=== PATIENT | female | born 1960 | race Caucasian/White ===

== ENCOUNTER 2016-09-07 19:11 | Emergency (ER) | payer OTHER ==
[2016-09-07 19:40] VITALS: BP 145/84
--- NOTE | 2016-09-07 20:29 | EDM.PDOC ---
ED HPI GENERAL MEDICAL PROBLEM - General Chief Complaint: Upper Extremity Injury/Pain Stated Complaint: POSSIBLE RIGHT SHOULDER DISLOCATE Time Seen by Provider: 09/07/16 19:49 Source of Information: Reports: Patient, Family History Limitations: Reports: No Limitations - History of Present Illness INITIAL COMMENTS - FREE TEXT/NARRATIVE: Is a 55-year-old female. She was attempting to get on a course and she was standing on a log. The log rolled causing her to fall on her right shoulder. She thinks her shoulder might be dislocated. When she fell her right upper arm was next to her chest and she fell [place] on the right shoulder. She denies any neck pain or upper back pain. She did not hit her head and there was no loss of consciousness. She denies any hip pain or knee pain. She says her left ankle little sore but then she has a lot of foot and ankle problems and she is not worried about that she is worried about her shoulder. She denies any nausea and vomiting. Right Shoulder Pain Score (Numeric/FACES): 3 - Related Data Allergies Allergy/AdvReac Type Severity Reaction Status Date / Time No Known Allergies Allergy Verified 09/07/16 19:36 Home Meds: Home Meds FLUoxetine [PROzac] 40 mg PO DAILY 12/21/15 [History] Cholecalciferol (Vitamin D3) [Vitamin D3] 1,000 unit PO DAILY 05/03/16 [History] Glucosamine/D3/Boswellia [place] [Osteo Bi-Flex Caplet] 1 tab PO DAILY 05/03/16 [ History] Lactobacillus Acidophilus [Probiotic] 1 cap PO DAILY 05/03/16 [History] Prevagen 1 tab PO DAILY 05/03/16 [History] Vitamin E 1 cap PO DAILY 05/03/16 [History] Hydrocodone/Acetaminophen [Hydrocodon-Acetaminophen 5-325] 1 each PO Q6H PRN # 20 tablet 09/07/16 [Rx] Naproxen Sodium [Aleve] 440 mg PO ONCALL 09/07/16 [History] Past Medical History HEENT History: Reports: Cataract, Impaired Vision, Other (See Below) Other HEENT History: wears glasses Cardiovascular History: Reports: High Cholesterol, Hypertension Respiratory History: Reports: Sleep Apnea Other Respiratory History: wears cpap Gastrointestinal History: Reports: Diverticulosis Genitourinary History: Reports: None PET CARE ASSISTANT History: Reports: Endometriosis Musculoskeletal History: Reports: Arthritis, Osteoarthritis Neurological History: Reports: Migraines Psychiatric History: Reports: Depression Endocrine/Metabolic History: Reports: None Hematologic History: Reports: None, Anemia Oncologic (Cancer) History: Reports: None Dermatologic History: Reports: None - Past Surgical History HEENT Surgical History: Reports: Cataract Surgery GI Surgical History: Reports: Appendectomy, Colonoscopy, Hernia Repair/Other Female Surgical History: Reports: Hysterectomy Musculoskeletal Surgical History: Reports: Other (See Below) Other Musculoskeletal Surgeries/Procedures:: Bursa removed R) elbow, carpel tunnel, R) foot screws Social & Family History - Tobacco Use Smoking Status *Q: Former Smoker Used Tobacco, but Quit: Yes Month Tobacco Last Used: 12/2015 Second Hand Smoke Exposure: No - Alcohol Use Days Per Week of Alcohol Use: 0 Number of Drinks Per Day: 0 Total Drinks Per Week: 0 - Recreational Drug Use Recreational Drug Use: No Drug Use in Last 12 Months: No Review of Systems - Review of Systems Review Of Systems: See Below Constitutional: Reports: No Symptoms Eyes: Reports: No Symptoms Ears: Reports: No Symptoms Nose: Reports: No Symptoms Mouth/Throat: Reports: No Symptoms Respiratory: Denies: Shortness of Breath Cardiovascular: Denies: Chest Pain GI/Abdominal: Reports: No Symptoms Genitourinary: Reports: No Symptoms Musculoskeletal: Reports: Other (As per history of present illness) Skin: Reports: No Symptoms Neurological: Reports: No Symptoms Psychiatric: Reports: No Symptoms ED EXAM, GENERAL - Physical Exam Exam: See Below Exam Limited By: No Limitations General Appearance: Alert, WD/WN, Mild Distress Eye Exam: Bilateral Eye: Normal Inspection Ears: Normal External Exam Nose: Normal Inspection Throat/Mouth: Normal Inspection, Normal Lips, Normal Voice Head: Atraumatic, Normocephalic Neck: Supple, Full Range of Motion Respiratory/Chest: No Respiratory Distress, Lungs Clear, Other (There is no rib tenderness on palpation of the left and right ribs) Cardiovascular: Regular Rate, Rhythm, No Murmur GI/Abdominal: Other (Patient denies any abdominal tenderness) Back Exam: Normal Inspection Extremities: Other (Her right shoulder appears to be swollen very tender on the proximal humeral area, the shoulder is not dislocated because the glenoid fossa is full, she has no range of motion of the shoulder due to pain, her right elbow has a small contusion noted but she has full supination and pronation of that elbow, she has some mild stiffness in her right wrist but she denies any pain and she has full motion of her digits and able to make a fist without difficulty, her left upper extremity is atraumatic) Neurological: Alert, Oriented Psychiatric: Normal Affect, Normal Mood Skin Exam: Warm, Dry Course - Vital Signs Last Recorded V/S: Last Vital Signs Temp 97.6 F 09/07/16 19:38 Pulse 70 09/07/16 19:38 Resp 18 09/07/16 19:38 BP 145/84 H 09/07/16 19:38 Pulse Ox 96 09/07/16 19:38 - Orders/Labs/Meds Orders: Active Orders 24 hr Category Date Time Status Communication Order [RC] STAT Care 09/07/16 20:52 Active Shoulder Comp Rt [CR] Stat Exams 09/07/16 19:54 Taken - Radiology Interpretation Free Text/Narrative:: Shoulder x-ray of the right shoulder, does not show any proximal humeral fracture, it does have degenerative changes in the before meals joint and there might be an old versus new inferior glenoid lip fracture noted. Departure - Departure Time of Disposition: 21:22 Disposition: Home, Self-Care 01 Condition: Fair Clinical Impression: Contusion of right shoulder Qualifiers: Encounter type: initial encounter Qualified Code(s): S40.011A - Contusion of right shoulder, initial encounter Right shoulder strain Qualifiers: Encounter type: initial encounter Qualified Code(s): S46.911A - Strain of unspecified muscle, fascia and tendon at shoulder and upper arm level, right arm , initial encounter Rotator cuff disorder Qualifiers: Laterality: right Qualified Code(s): M67.911 - Unspecified disorder of synovium and tendon, right shoulder - Discharge Information Prescriptions: Hydrocodone/Acetaminophen [Hydrocodon-Acetaminophen 5-325] 1 each PO Q6H PRN # 20 tablet PRN Reason: Pain Referrals: Mitra Woo NP [Primary Care Provider] - Pk Engle MD [Physician] - Forms: ED Department Discharge Additional Instructions: Ice the shoulder down 20 minutes every 1-2 hours over the next 48 hours, take the medication as needed for pain, wear the sling when you were up walking about or sitting up but you may take it off when you lie down, try to sleep and a slight incline so you are not tempted to rollover on the right shoulder while sleeping, call Dr. Engle's office Saturday for reevaluation of your right shoulder, return to the ER if needed - My Orders Last 24 Hours: My Active Orders 09/07/16 19:54 Shoulder Comp Rt [CR] Stat 09/07/16 20:52 Communication Order [RC] STAT - Assessment/Plan Last 24 Hours: My Active Orders 09/07/16 19:54 Shoulder Comp Rt [CR] Stat 09/07/16 20:52 Communication Order [RC] STAT
[2016-09-07] MEDS ORDERED: Acetaminophen/HYDROcodone 325-5 MG Tab PO ONE (21:36)
--- NOTE | 2016-09-10 08:12 | CR ---
Right shoulder: Three views of the right shoulder were obtained. Comparison: No previous right shoulder study. Joint space narrowing and mild inferior spurring are seen within the acromioclavicular joint. Minimal bony density which is felt to be old is seen off the inferior glenoid. Degenerative endplate spurring is seen within the thoracic spine. No acute fracture or other bony abnormality is appreciated. Impression: 1. Incidental findings as noted above. Nothing acute is identified on three-view right shoulder study. Diagnostic code #2
== END 2016-09-07 21:40 | disposition home or self-care (01) ==
LOC: JD.ED 19:11
DX: S46.911A Strain of unspecified muscle, fascia and tendon at shoulder and upper arm level, right arm, initial encounter (principal); S40.011A Contusion of right shoulder, initial encounter; M67.911 Unspecified disorder of synovium and tendon, right shoulder; E78.00 Pure hypercholesterolemia, unspecified; I10 Essential (primary) hypertension; M19.90 Unspecified osteoarthritis, unspecified site; G43.909 Migraine, unspecified, not intractable, without status migrainosus; F32.9 Major depressive disorder, single episode, unspecified; Z86.2 Personal history of diseases of the blood and blood-forming organs and certain disorders involving the immune mechanism; Z90.49 Acquired absence of other specified parts of digestive tract; Z90.710 Acquired absence of both cervix and uterus; Z87.891 Personal history of nicotine dependence; W19.XXXA Unspecified fall, initial encounter
CPT/HCPCS: 73030; 99283; A9270

== ENCOUNTER 2016-09-27 06:50 | Day surgery (SDC) | payer OTHER ==
[~2016-09-27 06:50] MED LIST: EPINEPHrine 1 MG/ML SDV ONE; Lidocaine 1%/Sod Bicarbonate in NS 8.4% 1 ML Syringe IV PRN; Ropivacaine 0.5% 5 MG/ML 30 ML SDV ONE; Sodium Chloride 0.9% 10 ML Syringe FLUSH PRN
[2016-09-27] MEDS ORDERED: Ondansetron 4 MG/2 ML SDV ONE (07:14)
[2016-09-27] MEDS ORDERED: Dexamethasone 4 MG/ML SDV ONE (07:14)
[2016-09-27] MEDS ORDERED: Lidocaine 1% 4 ML ONE ×2 (07:14→07:26)
[2016-09-27] MEDS ORDERED: Rocuronium 50 MG/5 ML Vial ONE (07:14)
[2016-09-27] MEDS ORDERED: Propofol 200 MG/20 ML SDV ONE (07:15)
[2016-09-27] MEDS: Lactated Ringers 1,000 ML IV SCH ×3 (07:15→12:55)
--- NOTE | 2016-09-27 07:19 | PCM.PREANE ---
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.) Other: Reports: Easy Bruising - Physical Assessment NPO Status Date: 09/26/16 NPO Status Time: 19:00 Pulse: 60 O2 Sat by Pulse Oximetry: 96 Respiratory Rate: 16 Blood Pressure: 125/68 Temperature: 37.1 C Height: 1.69 m Weight: 99.337 kg ASA Class: 2 Mental Status: Alert & Oriented x3 Airway Class: Mallampati = 3 Dentition: Reports: Normal Dentition, Caries Thyro-Mental Finger Breadths: 3 Mouth Opening Finger Breadths: 3 ROM/Head Extension: Full Lungs: Clear to auscultation, Normal respiratory effort Cardiovascular: Regular Rate, Regular Rhythm, No Murmurs - Lab Values: Laboratory Last Values MRSA (PCR) Negative 09/19/16 17:10 - Imaging/EKG Impressions: EKG: SR rate=60 CXR: negative - Allergies Allergies/Adverse Reactions: Allergies Allergy/AdvReac Type Severity Reaction Status Date / Time No Known Allergies Allergy Verified 09/26/16 16:14 - Anesthesia Plan Pre-Op Medication Ordered: None - Acknowledgements Anesthesia Type Planned: General Anesthesia (and a Right Interscalene Block under US guidance for post operative pain control requested by Dr. Engle.) Pt an Appropriate Candidate for the Planned Anesthesia: Yes Alternatives and Risks of Anesthesia Discussed w Pt/Guardian: Yes Pt/Guardian Understands and Agrees with Anesthesia Plan: Yes PreAnesthesia Questionnaire HEENT History: Reports: Cataract, Impaired Vision, Other (See Below) Other HEENT History: wears glasses Cardiovascular History: Reports: High Cholesterol, Hypertension Respiratory History: Reports: Sleep Apnea Other Respiratory History: wears cpap Gastrointestinal History: Reports: Diverticulosis, GERD Genitourinary History: Reports: None TAX INVESTIGATOR History: Reports: Endometriosis Musculoskeletal History: Reports: Arthritis, Osteoarthritis Other Musculoskeletal History: R wrist ganglion cyst, hand neuropathy, polyarthropathy, R shoulder pain Neurological History: Reports: Migraines, Other (See Below) Other Neuro History: hand neuropathy, poor short term memory Psychiatric History: Reports: Depression Endocrine/Metabolic History: Reports: None Hematologic History: Reports: Anemia Immunologic History: Reports: None Oncologic (Cancer) History: Reports: None Dermatologic History: Reports: None - Past Surgical History HEENT Surgical History: Reports: Cataract Surgery GI Surgical History: Reports: Appendectomy, Colonoscopy, Hernia Repair/Other Female Surgical History: Reports: Hysterectomy Musculoskeletal Surgical History: Reports: Carpal Tunnel, Other (See Below) Other Musculoskeletal Surgeries/Procedures:: Bursa removed R) elbow, carpel tunnel, R) foot screws Dermatological Surgical History: Reports: None - SUBSTANCE USE Smoking Status *Q: Former Smoker Tobacco Use Within Last Twelve Months: Cigarettes Second Hand Smoke Exposure: No Days Per Week of Alcohol Use: 0 Number of Drinks Per Day: 0 Total Drinks Per Week: 0 Recreational Drug Use History: No - HOME MEDS Home Medications: Home Meds FLUoxetine [PROzac] 40 mg PO DAILY 12/21/15 [History] Hydrocodone/Acetaminophen [Hydrocodon-Acetaminophen 5-325] 1 each PO Q6H PRN # 20 tablet 09/07/16 [Rx] - CURRENT (IN HOUSE) MEDS Current Meds: Current Medications Lactated Ringer's (Ringers, Lactated) 1,000 mls @ 125 mls/hr IV ASDIRECTED LALA Lidocaine/Sodium Bicarbonate (Buffered Lidocaine 1% In Ns 8.4%) 0.25 ml IV ONETIME PRN PRN Reason: Prior to IV Start Sodium Chloride (Saline Flush) 10 ml FLUSH ASDIRECTED PRN PRN Reason: Keep Vein Open Discontinued Medications Epinephrine HCl (Adrenalin 1:1000) Confirm Administered Dose 1 mg .ROUTE .STK- MED ONE Stop: 09/26/16 17:09 Ropivacaine (Naropin 0.5%) Confirm Administered Dose 30 ml .ROUTE .STK-MED ONE Stop: 09/26/16 17:09
[2016-09-27] MEDS ORDERED: fentaNYL 100 MCG/2 ML SDV ONE ×2 (07:26→10:17)
[2016-09-27] MEDS ORDERED: Midazolam 1 MG/ML 2 ML SDV ONE (07:26)
[2016-09-27] MEDS ORDERED: Triamcinolone Acetonide 40 MG/ML 1 ML MDV ONE (07:28)
--- NOTE | 2016-09-27 08:52 | PCM.SN ---
- Free Text/Narrative Note: Anesthesia Note: (Interscalene block note) Dr. Wilde present for the block Date: 09/27/2016 Time Out: 0755 Start: 0756 Stop: 08 Surgical Procedure: Right Shoulder Video Arhroscopy with Rotator Cuff Repair, Subacromial Decompression Diagnosis: Right Shoulder Rotator Cuff Tear Current Procedure: Right interscalene block under US guidance for postoperative pain control requested by Dr. Engle. Patient chart reviewed, risk/benefits discussed with patient, consent obtained. Patient positioned supine, monitors/alarms on, oxygen placed via nasal cannula at 2 LPM. IV sedation administered: Versed 2mg IV @ 0754 Fentanyl 100 mcg IV @ 0754 Right shoulder prepped with two chloropreps. Sterile drapes placed with aseptic technique noted. Under US guidance(sterile US sleeve noted) right subclavian artery visualized along with the right brachial plexus. Plexus followed up to C6 cricoid level, and area localized with 2mls of 1% lidocaine. 22gauge 2 inch stimiplex needle advanced under US with 0.5mV with stimulation of biceps noted. Good stimulation noted with decreased voltage and absent at 0.2mVs. 1ml of Normal Saline injected with loss of stimulation noted to confirm needle not placed intraneurally. Incremental dosing of 5mls with negative aspiration noted prior to each injection of 0.5% ropivacaine with 1:200,000 epinephrine. Total volume=30mls. Vital Signs: 0750 HR: 59 RR: 18 BP: 126/64 Spo2: 100% on 2 LPM nasal cannula 0800 HR: 56 RR: 15 BP: 111/64 Spo2: 96% on 2LPM nasal cannula 0810 HR: 58 RR: 14 BP: 110/65 Spo2: 96% on 2 LPM nasal cannula 0820 HR: 64 RR: 17 BP: 124/63 Spo2: 97% on 2 LPM nasal cannula
[2016-09-27] MEDS ORDERED: ceFAZolin 1 GM Vial ONE (09:27)
[2016-09-27] MEDS: Bupivacaine 0.25% 30 ML SDV ONE ×2 (09:52→10:22)
[2016-09-27] MEDS: EPINEPHrine 1 MG/ML 30 ML MDV ONE ×2 (09:55→10:23)
[2016-09-27] MEDS ORDERED: Lactated Ringers 1,000 ML ONE (10:26)
[2016-09-27] MEDS ORDERED: fentaNYL 100 MCG/2 ML SDV IVPUSH PRN (10:28)
[2016-09-27] MEDS ORDERED: Ondansetron 4 MG/2 ML SDV IVPUSH PRN (10:28)
[2016-09-27] MEDS ORDERED: diphenhydrAMINE 50 MG/ML SDV IVPUSH PRN (10:28)
[2016-09-27] MEDS ORDERED: Meperidine PF 50 MG/ML Syringe IVPUSH PRN (10:28)
[2016-09-27] MEDS ORDERED: fentaNYL 100 MCG/2 ML SDV IVPUSH ONE (11:21)
--- NOTE | 2016-09-27 11:25 | PCM.POSTAN ---
POST ANESTHESIA ASSESSMENT - MENTAL STATUS Mental Status: alert, oriented - VITAL SIGNS Pulse Rate: 57 SaO2: 92 Resp Rate: 15 Blood Pressure: 109/58 Temperature: 36.0 C - RESPIRATORY Respiratory Status: respiratory rate WNL, airway patent, O2 saturation stable, supplemental oxygen - CARDIOVASCULAR CV Status: pulse rate WNL, blood pressure stable - GASTROINTESTINAL GI Status: no symptoms - PAIN Pain Score: 8 (fentanyl) - POST OP HYDRATION Hydration Status: adequate & stable
[2016-09-27] MEDS ORDERED: Ropivacaine 0.5% 5 MG/ML 30 ML SDV ONE (11:27)
[2016-09-27] MEDS ORDERED: EPINEPHrine 1 MG/ML SDV ONE (11:27)
[2016-09-27] MEDS ORDERED: Acetaminophen/HYDROcodone 325-5 MG Tab PO ONE (13:47)
[2016-09-27] MEDS ORDERED: Acetaminophen/HYDROcodone 325-5 MG Tab PO PRN (14:00)
[2016-09-27 15:38] VITALS: BP 151/82
--- NOTE | 2016-09-27 22:30 | PCM.OPNOTE ---
- General Post-Op/Procedure Note Date of Surgery/Procedure: 09/27/16 Operative Procedure(s): right shoulder video arthroscopy with large rotator cuff repair, subacromial decompression with debridement and biceps tenotomy Pre Op Diagnosis: rotator cuff tear with impingement Post-Op Diagnosis: Same Anesthesia Technique: General ET tube, Regional block Primary Surgeon: Pk Engle Anesthesia Provider: Shaun Shaw Business Controller: Carmelina Maurer Business Controller: Chang Larry EBL in mLs: 5 Complications: None Condition: Good Free Text/Narrative:: Intake & Output 09/27/16 09/27/16 09/27/16 06:59 14:59 22:59 Intake Total 650 680 Balance 650 450
--- NOTE | 2016-09-27 23:13 | OR ---
DATE OF OPERATION: 09/27/2016 SURGEON: Pk Engle MD OPERATION PERFORMED: 1. Right shoulder video arthroscopy with large rotator cuff repair. 2. Subacromial decompression. 3. Extensive debridement and bursectomy along with biceps tenotomy. PREOPERATIVE DIAGNOSIS: Rotator cuff tear with impingement. POSTOPERATIVE DIAGNOSIS: Rotator cuff tear with impingement with biceps tendinopathy. ANESTHESIA: General endotracheal intubation with regional interscalene block. ANESTHESIA PROVIDER: Dr. Shaun Shaw. ASSISTANTS: Carmelina Maurer PA-C and Chang Larry MD. ESTIMATED BLOOD LOSS: 5 mL. COMPLICATIONS: None. CONDITION: Stable. DESCRIPTION OF PROCEDURE: The patient was identified in the preop holding area. Proper site was marked and identified by the surgeon. The patient was taken back to the operating theater where after adequate anesthesia, the patient was placed in a lazy left lateral decubitus position. A wedge was placed posteriorly. All bony prominences were well padded. At this time, the right upper extremity sterilely prepped and draped in the usual sterile fashion. OR time-out was performed. The patient received 2 g of IV Ancef. At this time, 15 pounds of traction was applied to the right upper extremity. Standard posterior incision was made. Scope trocar was then introduced into the glenohumeral joint and with use of a spinal needle, anterior portal was then created from an outside in technique. 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 The rest of the humeral head and glenoid showed no signs of chondromalacia. There was noted to be a large tear at both the supra and infraspinatus with retraction roughly midway to the glenoid. There was noted to be significant fraying of the biceps tendon as well as significant synovitis throughout the joint. At this time, the 4.5 full radius resector was placed in the joint and a biceps tenotomy was performed along with extensive debridement of the joint. At this time, attention was turned to the subacromial space. Subacromial space showed significant synovitis and debridement was done at this time. A 4.0 marixa was then used for creation of a good bony bleeding bed for repair of the rotator cuff and a subacromial decompression was done from posterior to anterior bringing it back to a stable rim to make it a type 1 acromion. At this time, with the creation of a spinal needle, 4.75 Arthrex SwiveLock anchor was placed medially. It was triple loaded. Two limbs of FiberTape and 4 limbs of FiberWire were then passed anteriorly to posteriorly. The four limbs of FiberWire were then tied medially. One of the sutures was cut. Next, the two limbs of the FiberTape along with 2 limbs of the FiberWire were then brought out laterally for a double-row repair. A tap was then used for 4.75-mm Arthrex SwiveLock anchor out laterally. All 4 limbs of the suture were placed and were tightened, and then the Arthrex SwiveLock lateral row anchor was placed. This was found to have adequate watertight repair with adequate scientology of the footprint. At this time, it was found to have adequate repair. The subacromial decompression was found to be adequate. Excess saline was then drained from the shoulder. A 3-0 nylon simple suture was used for closure of the skin. The patient was then placed in a pillow sling and a soft tissue dressing, and was sent to PACU in stable condition. MMODAL /[id number]
== END 2016-09-27 15:30 | disposition home or self-care (01) ==
LOC: JD.SDS 06:50
PROVIDERS: ATTEND Orthopaedic Surgery
PROC: 0LQ14ZZ Repair Right Shoulder Tendon, Percutaneous Endoscopic Approach (ICD-10-PCS; principal; 2016-09-27)
PROC: 0RNJ4ZZ Release Right Shoulder Joint, Percutaneous Endoscopic Approach (ICD-10-PCS; 2016-09-27)
DX: M75.101 Unspecified rotator cuff tear or rupture of right shoulder, not specified as traumatic (principal); M75.41 Impingement syndrome of right shoulder; M94.211 Chondromalacia, right shoulder; M65.811 Other synovitis and tenosynovitis, right shoulder; F32.9 Major depressive disorder, single episode, unspecified; I10 Essential (primary) hypertension; E78.00 Pure hypercholesterolemia, unspecified; G43.909 Migraine, unspecified, not intractable, without status migrainosus; M13.0 Polyarthritis, unspecified; G47.33 Obstructive sleep apnea (adult) (pediatric); Z79.899 Other long term (current) drug therapy; Z90.49 Acquired absence of other specified parts of digestive tract; Z90.710 Acquired absence of both cervix and uterus; Z98.890 Other specified postprocedural states; Z99.89 Dependence on other enabling machines and devices; Z87.891 Personal history of nicotine dependence
CPT/HCPCS: 29823; 29826; 29827; 87641; A9270; J0171; J0690; J1100; J2250; J2405; J2795; J3010; J3301; J7120; 01630; 64415; J2704; J3490